=== PATIENT | male | born 1975 | race American Indian/Alaskan Native ===

== ENCOUNTER 2022-05-24 02:11 | Emergency (ER) | payer SELFPAY ==
[2022-05-24] MEDS ORDERED: SODIUM CHLORIDE 0.9% 1000 ML 1,000 ML IV ONE (02:23)
[2022-05-24 03:11] LABS: Bacteria,Urine 1+ /HPF (Negative); Color,Urine Colorless (Yellow); RBC,Urine < 1.0 /HPF (0.0-6.0)
[2022-05-24 03:12] LABS: WBC,Urine < 1.0 /HPF (0.0-6.0)
--- NOTE | 2022-05-24 03:13 | XRay Report ---
CHEST 1 VIEW 05/24/2022 2:05 AM INDICATION / CLINICAL INFORMATION: Altered Mental Status. COMPARISON: None available. FINDINGS: SUPPORT DEVICES: None. HEART / MEDIASTINUM: No significant abnormality. LUNGS / PLEURA: No significant pulmonary or pleural abnormality. No pneumothorax. ADDITIONAL FINDINGS: No significant additional findings. IMPRESSION: 1. No acute findings. Signer Name: David Soto MD Signed: 05/24/2022 3:08 AM Workstation Name: [id number]
[2022-05-24 03:17] LABS: Basophils % (Auto) 0.5 % (0.0-1.8); Eosinophils # (Auto) 0.1 K/mm3 (0.0-0.4); Hematocrit 37.9 % (35.5-45.6); Hemoglobin 13.2 gm/dl (11.8-15.2); Lymphocytes # (Auto) 1.5 K/mm3 (1.2-5.4); Lymphocytes % (Auto) 41.8 % (13.4-35.0); Mean Corpuscular HGB Conc 35 % (32-34); Mean Corpuscular Volume 98 fl (84-94); Monocytes # (Auto) 0.4 K/mm3 (0.0-0.8); Platelet Count 205 K/mm3 (140-440); Red Blood Count 3.88 M/mm3 (3.65-5.03); Red Cell Distribution Width 14.5 % (13.2-15.2)
[2022-05-24 03:18] LABS: Amphetamine Screen,Urine Negative; Benzodiazepines Screen,Urine Negative; Cocaine Screen,Urine Negative; Methadone Screen,Urine Negative; Opiate Screen,Urine Negative
[2022-05-24 03:27] LABS: INR 2.13 (0.87-1.13)
[2022-05-24 03:48] LABS: Cannabinoid Screen,Urine Positive
[2022-05-24 03:56] LABS: Alanine Aminotransferase 19 units/L (7-56); Albumin 4.6 g/dL (3.9-5); BUN/Creatinine Ratio 8; Blood Urea Nitrogen 7 mg/dL (9-20); Calcium 8.8 mg/dL (8.4-10.2); Hemolysis Index 4
[2022-05-24] MEDS ORDERED: THIAMINE 100 MG, FOLIC ACID 1 MG, MULTIPLE VITAMIN INJ, ADULT 10 ML in SODIUM CHLORIDE ... IV ONE (04:56)
--- NOTE | 2022-05-24 04:57 | Emergency Department Report ---
<MADISON HAMMOND - Last Filed: 05/24/22 14:22> ED General Adult HPI - General Chief complaint: Seizure Stated complaint: SEIZURE/PSYCH Time Seen by Provider: 05/24/22 02:22 - Related Data Previous Rx's Medication Instructions Recorded Last Taken Type chlordiazePOXIDE [Librium] 25 mg PO Q8H 5 Days #15 capsule NS 05/24/22 Unknown Rx Allergies Allergy/AdvReac Type Severity Reaction Status Date / Time Unable to Assess Allergy Unverified 05/24/22 02:43 ED Past Medical Hx - Medications Home Medications: Home Medications Medication Instructions Recorded Confirmed Last Taken Type chlordiazePOXIDE [Librium] 25 mg PO Q8H 5 Days #15 capsule NS 05/24/22 Unknown Rx ED Course - Reevaluation(s) Reevaluation #1: 05/24/22 14:22 pt signed to me at change of shift at 06:00 AM with EtOH and while sleeping off the intoxication-- Pt woke up around this time and reports feeling much better-- pt reassured. ED Medical Decision Making - Lab Data Result diagrams: 05/24/22 02:47 05/24/22 02:47 ED Disposition Clinical Impression: Substance abuse, Alcohol related seizure Alcohol intoxication Qualifiers: Complication of substance-induced condition: with unspecified complication Qualified Code(s): F10.929 - Alcohol use, unspecified with intoxication, unspecified Disposition: 01 HOME / SELF CARE / HOMELESS Condition: Stable Instructions: Binge-Drinking Information, Adult, Substance Use Disorder, Seizure, Adult Additional Instructions: Avoid excess alcohol drink for your overall health Increase your daily fluid to help your hydration Call and follow-up with your primary doctor in the next 2 to 3 days for progress Do not hesitate to call or return to emergency if your symptoms worsen Prescriptions: chlordiazePOXIDE [Librium] 25 mg PO Q8H 5 Days #15 capsule NS Referrals: PRIMARY CARE,MD [Primary Care Provider] - 3-5 Days Time of Disposition: 14:27 <GERTRUDIS HASSAN - Last Filed: 05/26/22 15:10> ED General Adult HPI - General PUI?: No Source: EMS Mode of arrival: Stretcher Limitations: Other - History of Present Illness Initial comments: pt came in via EMS said the pt had seizure. on the way pt tried to jump out of the ambulance vehicle. Pt was given Versed 5 mg IM. Blood glucose was 86mg/dl in ED -: unknown Consistency: constant Improves with: none Worsens with: none Associated Symptoms: denies: denies other symptoms, confusion Treatments Prior to Arrival: none ED Review of Systems ROS: Stated complaint: SEIZURE/PSYCH Other details as noted in HPI Constitutional: denies: chills, fever Eyes: denies: eye pain, eye discharge, vision change ENT: denies: ear pain, throat pain Respiratory: denies: cough, shortness of breath, wheezing Cardiovascular: denies: chest pain, palpitations Endocrine: no symptoms reported Gastrointestinal: denies: abdominal pain, nausea, diarrhea Genitourinary: denies: urgency, dysuria Musculoskeletal: denies: back pain, joint swelling, arthralgia Skin: denies: rash, lesions Neurological: denies: headache, weakness, paresthesias Psychiatric: denies: anxiety, depression Hematological/Lymphatic: denies: easy bleeding, easy bruising ED Past Medical Hx - Past Medical History Previous Medical History?: Yes Hx Seizures: Yes Hx Psychiatric Treatment: Yes (bipolar, schizophrenia) - Surgical History Past Surgical History?: No ED Physical Exam - General Limitations: Other General appearance: in no apparent distress, other (arousable ) - Head Head exam: Present: atraumatic, normocephalic - Eye Eye exam: Present: normal appearance - ENT ENT exam: Present: mucous membranes moist - Neck Neck exam: Present: normal inspection - Respiratory Respiratory exam: Present: normal lung sounds bilaterally. Absent: respiratory distress - Cardiovascular Cardiovascular Exam: Present: regular rate, normal rhythm. Absent: systolic murmur, diastolic murmur, rubs, gallop - GI/Abdominal GI/Abdominal exam: Present: soft, normal bowel sounds - Rectal Rectal exam: Present: deferred - Extremities Exam Extremities exam: Present: normal inspection - Back Exam Back exam: Present: normal inspection - Expanded Neurological Exam Expanded Best Eye Response ([place]): (3) open to voice Best Motor Response (Yusef): (6) obeys commands Best Verbal Response ([place]): (5) oriented [place] Total: 14 - Skin Skin exam: Present: warm, dry, intact, normal color. Absent: rash ED Course Vital Signs 05/24/22 05/24/22 05/24/22 02:30 02:40 03:00 Temperature 97.5 F L Pulse Rate 70 69 64 Respiratory 14 19 13 Rate Blood Pressure 100/65 102/65 Blood Pressure 100/61 [Right] O2 Sat by Pulse 99 100 Oximetry 05/24/22 05/24/22 05/24/22 03:16 03:30 04:15 Temperature Pulse Rate 63 59 L 84 Respiratory 12 12 17 Rate Blood Pressure 109/77 115/85 122/93 Blood Pressure [Right] O2 Sat by Pulse 100 100 100 Oximetry 05/24/22 05/24/22 05/24/22 04:30 04:46 05:00 Temperature Pulse Rate 63 75 62 Respiratory 13 13 13 Rate Blood Pressure 113/77 117/84 115/78 Blood Pressure [Right] O2 Sat by Pulse 97 95 100 Oximetry 05/24/22 05/24/22 05/24/22 05:16 05:30 05:46 Temperature Pulse Rate 89 67 67 Respiratory 15 13 12 Rate Blood Pressure 103/68 109/75 105/72 Blood Pressure [Right] O2 Sat by Pulse 98 99 99 Oximetry 05/24/22 05/24/22 05/24/22 06:00 06:16 06:30 Temperature Pulse Rate 66 67 70 Respiratory 13 14 13 Rate Blood Pressure 110/74 115/79 119/91 Blood Pressure [Right] O2 Sat by Pulse 100 100 100 Oximetry 05/24/22 05/24/22 05/24/22 06:46 07:00 07:16 Temperature Pulse Rate 63 82 76 Respiratory 12 14 13 Rate Blood Pressure 121/77 121/75 115/79 Blood Pressure [Right] O2 Sat by Pulse 100 99 98 Oximetry 05/24/22 07:48 Temperature Pulse Rate Respiratory Rate Blood Pressure Blood Pressure [Right] O2 Sat by Pulse 100 Oximetry ED Medical Decision Making - Lab Data Result diagrams: 05/24/22 02:47 05/24/22 02:47 Critical care attestation.: If time is entered above; I have spent that time in minutes in the direct care of this critically ill patient, excluding procedure time. ED Disposition Is pt being admited?: No Does the pt Need Aspirin: No
[2022-05-24 09:31] VITALS: BP 115/79
--- NOTE | 2022-05-25 22:13 | Electrocardiograph Report ---
[facility] Test Date: 2022-05-24 Test Time: 02:50:11 Pat Name: CORINE STEVENS Department: Room: Gender: M [employer] Supervisor: REGINA : 1975 Requested By: GERTRUDIS HASSAN Order Number: [id number] Reading MD: Astrid Mariee Measurements Intervals [place] Rate: 66 P: 67 VT: 173 QRS: 70 QRSD: 88 T: 69 QT: 456 QTc: 477 Interpretive Statements Sinus rhythm ST elev, probable normal early repol pattern No previous ECG available for comparison Electronically Signed On 05-25-2022 22:12:19 EDT by Astrid Mariee
== END 2022-05-24 14:35 | disposition home or self-care (01) ==
LOC: ED 02:11
DX: F10.129 Alcohol abuse with intoxication, unspecified (principal); F19.10 Other psychoactive substance abuse, uncomplicated; R56.9 Unspecified convulsions; R79.1 Abnormal coagulation profile; Z79.899 Other long term (current) drug therapy; Y90.9 Presence of alcohol in blood, level not specified
CPT/HCPCS: 36415; 71045; 80053; 80307; 81001; 82550; 82962; 84484; 85025; 85610; 93005; 96361; 96365; 96366; 99284; J3411; J3490; J7030; 80320; 96375; G0480